=== PATIENT | female | born 1965 | race Caucasian/White ===

== ENCOUNTER 2016-10-03 15:20 | Emergency (ER) | payer BC, OTHER ==
[2016-10-03] MEDS ORDERED: SODIUM CHLORIDE 0.9% 1,000 ML IV ONE (15:50)
[2016-10-03] MEDS ORDERED: diphenhydrAMINE INJ 50 MG/ML VIAL IVP STA (15:50)
[2016-10-03] MEDS ORDERED: PROCHLORPERAZINE 10 MG/2 ML VIAL IVP STA (15:50)
[2016-10-03] MEDS ORDERED: DEXAMETHASONE 10 MG/ML VIAL IVP STA (15:51)
[2016-10-03] MEDS ORDERED: KETOROLAC 60 MG/2 ML VIAL IVP STA (15:51)
[2016-10-03] MEDS ORDERED: KETOROLAC 30 MG/ML VIAL ONE (16:03)
[2016-10-03] MEDS ORDERED: PROCHLORPERAZINE 10 MG/2 ML VIAL ONE (16:03)
[2016-10-03] MEDS ORDERED: DEXAMETHASONE 10 MG/ML VIAL ONE (16:03)
[2016-10-03] MEDS ORDERED: diphenhydrAMINE INJ 50 MG/ML VIAL ONE (16:04)
[2016-10-03] MEDS ORDERED: HYDROmorphone 1 MG/ML SYRINGE IVP STA (16:46)
[2016-10-03] MEDS ORDERED: HYDROmorphone 1 MG/ML SYRINGE ONE (16:50)
== END 2016-10-03 17:31 | disposition home or self-care (01) ==
DX: G43.901 Migraine, unspecified, not intractable, with status migrainosus (principal)
CPT/HCPCS: 96361; 96374; 96375; 99283; 99284; J1170

== ENCOUNTER 2016-10-16 16:54 | Outpatient (CLI) | payer OTHER | END 2016-10-16 16:55 | disposition home or self-care (01) | DX: G43.909 Migraine, unspecified, not intractable, without status migrainosus (principal); R93.8 Abnormal findings on diagnostic imaging of other specified body structures ==

== ENCOUNTER 2016-10-30 07:47 | Outpatient (CLI) | payer OTHER ==
[2016-10-30] MEDS ORDERED: GADOBUTROL 10 MMOL/10 ML VIAL IVP ONE (08:39)
== END 2016-10-30 07:48 | disposition home or self-care (01) ==
DX: G93.9 Disorder of brain, unspecified (principal)
CPT/HCPCS: 70553; A9585

== ENCOUNTER 2017-04-16 10:15 | Outpatient (CLI) | payer OTHER ==
--- NOTE | 2017-04-17 15:42 | Mammography Report ---
DIGITAL SCREENING MAMMOGRAM: 04/16/2017 CLINICAL INDICATION: A 51-year-old for screening. COMPARISON: 03/2016, 03/2015, 06/2013, 04/2012, 02/2011, 01/2010, 12/2008, 12/2007. TECHNIQUE: Routine CC and MLO projections were obtained of the breasts. FINDINGS: The breasts again demonstrate heterogeneously dense fibroglandular parenchyma bilaterally. Coarse and punctate, typically benign calcifications are present. In the left central posterior br east, only well seen on the CC projection, there is a possible developing density. Further evaluatio n with spot compression views and possible ultrasound is recommended. No mammographically suspicious findings are appreciated in the right breast. IMPRESSION: INCOMPLETE EXAMINATION. RECOMMENDATION: Additional evaluation of the left breast as above. BI-RADS category 0, incomplete. STANDARD QUALIFYING STATEMENTS 1. This examination was reviewed with the aid of Computer-Aided Detection (CAD). 2. A negative or benign imaging report should not delay biopsy if clinically suspicious findings are present. Consider surgical consultation if warranted. More than 5% of cancers are not identified by i maging. 3. Dense breasts may obscure an underlying neoplasm. JOB #: [id number] EXT JOB #:[id number]
== END 2017-04-16 10:16 | disposition home or self-care (01) ==
LOC: DI.N 10:15
PROVIDERS: ATTEND Family Medicine
DX: Z12.31 Encounter for screening mammogram for malignant neoplasm of breast (principal); R92.8 Other abnormal and inconclusive findings on diagnostic imaging of breast
CPT/HCPCS: 77067

== ENCOUNTER 2017-04-21 11:05 | Outpatient (CLI) | payer OTHER ==
--- NOTE | 2017-04-21 12:43 | Ultrasound Report ---
ULTRASOUND LEFT BREAST: 04/21/2017 CLINICAL INDICATION: Persistent nodule on mammogram. TECHNIQUE: Real-time scanning was performed with installation service representative static images obtained. FINDINGS: Ultrasound of the left breast was performed. In the retroareolar position, there is an em bedded 7 x 6 x 2 mm cyst. No sonographically suspicious findings are appreciated. IMPRESSION: SIMPLE CYST, ACCOUNTING FOR THE MAMMOGRAPHIC ABNORMALITY. RECOMMENDATION: Routine annual screening unless otherwise clinically indicated. BIRADS CATEGORY 2 - BENIGN FINDINGS. JOB #: [id number] EXT JOB #:[id number]
--- NOTE | 2017-04-21 17:21 | Mammography Report ---
DIGITAL DIAGNOSTIC LEFT MAMMOGRAM: 04/21/2017 CLINICAL INDICATION: Possible developing density left posterior breast. TECHNIQUE: Left true lateral and spot compression views. COMPARISON: 04/16/2017, 04/16/2016, 04/11/2015, 06/23/2013, 05/20/2012, 03/14/2011, 02/11/2010. The left breast again demonstrates heterogeneously dense fibroglandular parenchyma. The developing d ensity in the left posterior central breast dissipates partially on additional compression, measuring approximately 1 cm. No associated calcifications are seen. Please also refer to left breast ultras ound of the same day. IMPRESSION: BENIGN FINDINGS, WITH A DEEPLY EMBEDDED SIMPLE CYST ACCOUNTING FOR THE MAMMOGRAPHIC ABNO RMALITY. RECOMMENDATION: ROUTINE ANNUAL SCREENING UNLESS OTHERWISE CLINICALLY INDICATED. BIRADS CATEGORY: 2, BENIGN FINDINGS. STANDARD QUALIFYING STATEMENTS 1. This examination was reviewed with the aid of Computed-Aided Detection (CAD). 2. A negative or benign imaging report should not delay biopsy if clinically suspicious findings are present. Consider surgical consultation if warranted. More than 5% of cancers are not identified b y imaging. 3. Dense breasts may obscure an underlying neoplasm. JOB #: [id number] EXT JOB #:[id number]
== END 2017-04-21 11:06 | disposition home or self-care (01) ==
LOC: DI 11:05
PROVIDERS: ATTEND Family Medicine
DX: N60.02 Solitary cyst of left breast (principal)
CPT/HCPCS: 76642

== ENCOUNTER 2018-05-10 08:39 | Day surgery (SDC) | payer BC ==
[2018-05-10] MEDS ORDERED: LACTATED RINGERS 1,000 ML IV ONE ×4 (09:02→10:37)
[2018-05-10] MEDS ORDERED: fentaNYL 250 MCG/5 ML VIAL IVP ONE (09:57)
[2018-05-10] MEDS ORDERED: MIDAZOLAM 2 MG/2 ML VIAL IVP ONE (09:57)
[2018-05-10] MEDS ORDERED: fentaNYL 100 MCG/2 ML VIAL IVP ONE (09:57)
[2018-05-10 11:23] VITALS: BP 110/80
== END 2018-05-10 08:40 | disposition home or self-care (01) ==
LOC: SDS 08:39
PROVIDERS: ATTEND Surgery
PROC: 0DJD8ZZ Inspection of Lower Intestinal Tract, Via Natural or Artificial Opening Endoscopic (ICD-10-PCS; principal; 2018-05-10 09:45)
DX: Z12.11 Encounter for screening for malignant neoplasm of colon (principal); K64.8 Other hemorrhoids; F41.9 Anxiety disorder, unspecified; Z83.71 Family history of colonic polyps; Z85.828 Personal history of other malignant neoplasm of skin
CPT/HCPCS: 45378; J3010; J7120

== ENCOUNTER 2018-05-20 14:38 | Outpatient (CLI) | payer BC ==
--- NOTE | 2018-05-20 15:51 | XRAY Report ---
Reason: LATERAL EPICONDYLITIS OF THE RIGHT ELBOW Procedure Date: 05/20/2018 Accession Number: [id number] / [id number] Procedure: XR - Elbow 2 View RT CPT Code: FULL RESULT: EXAM: RIGHT ELBOW RADIOGRAPHY EXAM DATE: 05/20/2018 03:18 PM. CLINICAL HISTORY: Lateral epicondylitis of the right elbow. COMPARISON: None. TECHNIQUE: 2 views. FINDINGS: Bones: Normal. No fractures or bone lesions. Joints: Normal. No effusion. No subluxation. Soft Tissues: Normal. No soft tissue swelling. IMPRESSION: Normal elbow radiography. RADIA
== END 2018-05-20 14:39 | disposition home or self-care (01) ==
LOC: DI 14:38
PROVIDERS: ATTEND Family Medicine
DX: M77.11 Lateral epicondylitis, right elbow (principal)

== ENCOUNTER 2018-06-01 08:00 | Outpatient (CLI) | payer BC | END 2018-06-01 08:01 | disposition home or self-care (01) | LOC: LAB.R 08:00 | PROVIDERS: ATTEND Family Medicine | DX: R32 Unspecified urinary incontinence (principal); R30.0 Dysuria | CPT/HCPCS: 81001; 81003; 87086; 87181 ==

== ENCOUNTER 2018-06-15 14:54 | Outpatient (CLI) | payer BC ==
[2018-06-15 19:07] LABS: BILIRUBIN,URINE NEGATIVE (NEGATIVE); GLUCOSE, URINE (UA) NEGATIVE (NEGATIVE); KETONES,URINE (UA) NEGATIVE (NEGATIVE); LEUKOCYTE ESTERASE, URINE TRACE (NEGATIVE); NITRITE,URINE NEGATIVE (NEGATIVE); OCCULT BLOOD,URINE NEGATIVE (NEGATIVE); PH,URINE 6.5 PH (5.0-7.5); PROTEIN,URINE NEGATIVE (NEGATIVE); UROBILINOGEN,URINE 0.2 (NORMAL) E.U./dL (NORMAL)
[2018-06-15 19:12] LABS: CLARITY,URINE CLEAR (CLEAR)
[2018-06-15 19:16] LABS: AMORPHOUS SEDIMENT,UR Few /LPF; BACTERIA,URINE Rare /HPF (None Seen); RBC,URINE 0-5 /HPF (0-5); SQUAMOUS EPITHELIAL CELL,UR FEW Squamous (<= Few)
== END 2018-06-15 14:55 | disposition home or self-care (01) ==
LOC: LAB.WCP 14:54
PROVIDERS: ATTEND Family Medicine
DX: R30.0 Dysuria (principal)
CPT/HCPCS: 81001; 87086

== ENCOUNTER 2019-02-18 13:46 | Emergency (ER) | payer BC ==
--- NOTE | 2019-02-18 14:02 | ED Physician Documentation ---
History of Present Illness - Stated complaint Stated Complaint: IRREGULAR HR - History obtained from History obtained from: Patient - History of Present Illness Timing: How many weeks ago (4 weeks) Improved by: Nothing Worsened by: Nothing - Additonal information Additional information: Is a 53-year-old woman who for about the past month has been experiencing some pausing in her heartbeat that is very intermittent and lasts for just a couple minutes and then resolve. It started this afternoon and just seems to be lasting longer and more frequently than it has in the past. She is made an appointment to see her primary care provider on Thursday to discuss this with her and she became concerned when it continued today and left work to come in to be evaluated. She denies any associated chest pain, shortness of breath, dizziness or loss of consciousness, diaphoresis or nausea. No history of heart disease. She has not noted any alleviating or exacerbating factors. She does not take any decongestant medications and drinks 2 cups of coffee about daily.No recreational drug use. 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 She is never had any thyroid disease. She does have a family history of her mother passing at age 61 of a heart attack and her father has congestive heart failure and hypertension. Review of Systems Constitutional: denies: Fever, Chills, Fatigue Eyes: denies: Decreased vision Nose: denies: Rhinorrhea / runny nose Throat: denies: Sore throat Cardiac: reports: Palpitations. denies: Chest pain / pressure, Pedal edema Respiratory: denies: Dyspnea, Cough GI: denies: Abdominal Pain, Nausea, Vomiting, Diarrhea : reports: Vaginal bleeding (She has developed some vaginal spotting. Her last menstrual period was in September of this year and her computer network and systems engineer told her on the blood work it looks like she was in menopause.To get some mild suprapubic cramping from time to time. No history of fibroid. Her last female check with the PRESS OPERATOR [employer]Y was 1 year ago). denies: Dysuria, Frequency, Hematuria Skin: denies: Rash Neurologic: denies: Generalized weakness, Focal weakness, Numbness, Syncope, Altered mental status, LOC PD PAST MEDICAL HISTORY - Past Medical History Cardiovascular: None Respiratory: None Neuro: Other (Meningiomas) Endocrine/Autoimmune: Other (Pituitary cysts) GI: None : None HEENT: Chronic vision loss Psych: None Musculoskeletal: None Derm: None - Past Surgical History Past Surgical History: Yes /[employer] OPERATOR [employer]: Endometrial ablation - Present Medications Home Medications: Ambulatory Orders Medication Instructions Recorded Confirmed Citalopram [CeleXA] 2 tab PO DAILY 04/12/14 05/07/18 - Allergies Allergies/Adverse Reactions: Allergies Allergy/AdvReac Type Severity Reaction Status Date / Time erythromycin base Allergy Hives Verified 02/18/19 14:02 [Erythromycin Base] - Living Situation Living Situation: reports: With spouse/s.o. Living Arrangement: reports: At home - Social History Does the pt smoke?: No Smoking Status: Never smoker Does the pt drink ETOH?: No Does the pt have substance abuse?: No Substance Use and Type: Other (Denies use of recreational drugs) Additional Social History: Works as a teacher - Family History Family history: reports: Other (Mother passed at age 61 of an NC. Father has hypertension and CHF) - Immunizations Immunizations are current?: Yes - POLST Patient has POLST: Yes PD ED PE NORMAL - Vitals Vital signs reviewed: Yes - General General: Alert and oriented X 3, No acute distress, Well developed/nourished - HEENT HEENT: Atraumatic, PERRL, EOMI, Moist mucous membranes, Pharynx benign - Neck Neck: Supple, no meningeal sign, No adenopathy, No JVD - Cardiac Cardiac: RRR, No murmur - Respiratory Respiratory: No respiratory distress, Clear bilaterally - Abdomen Abdomen: Normal bowel sounds - Derm Derm: Normal color, Warm and dry, No rash - Extremities Extremities: No edema - Neuro Neuro: Alert and oriented X 3, pl sql programmer 2-12 intact, No motor deficit, No sensory deficit, Normal speech - Psych Psych: Normal mood, Normal affect Results - Vitals Vitals: Vital Signs - 24 hr 02/18/19 02/18/19 02/18/19 13:57 14:53 15:35 Temperature 36.1 C L Heart Rate 64 63 Respiratory 18 15 Rate Blood Pressure 150/85 H 122/86 H O2 Saturation 99 100 Oxygen O2 Source Room air - EKG (time done) 1353 Rate: Rate (enter#) Rhythm: NSR Intervals: Normal DE Ischemia: Normal ST segments Compare to prior EKG: Old EKG unavailable - Labs Labs: Laboratory Tests 02/18/19 02/18/19 02/18/19 14:20 14:20 14:20 WBC 8.3 RBC 3.92 L Hgb 11.9 L Hct 35.2 L MCV 90.0 MCH 30.5 MCHC 33.9 RDW 12.8 Plt Count 240 MPV 6.5 L Neut # (Auto) 5.7 Lymph # (Auto) 2.0 [place] # (Auto) 0.4 Eos # (Auto) 0.1 Baso # (Auto) 0.1 Absolute Nucleated RBC 0.00 Nucleated RBC % 0.0 Sodium 134 L Potassium 3.6 Chloride 101 Carbon Dioxide 23 Anion Gap 10.0 BUN 13 Creatinine 0.6 Estimated GFR (MDRD) 105 Glucose 124 H Calcium 9.3 Magnesium 2.3 Total Bilirubin 0.5 AST 16 ALT 12 Alkaline Phosphatase 48 Troponin I < 0.04 Total Protein 7.1 Albumin 4.0 Globulin 3.1 Albumin/Globulin Ratio 1.3 Lipase 33 TSH Urine Color Urine Clarity Urine pH Ur Specific Mitchell Urine Protein Urine Glucose (UA) Urine Ketones Urine Occult Blood Urine Nitrite Urine Bilirubin Urine Urobilinogen Ur Leukocyte Esterase Ur Microscopic Review Urine Culture Comments Urine HCG, Qual 02/18/19 02/18/19 14:20 14:43 WBC RBC Hgb Hct MCV MCH MCHC RDW Plt Count MPV Neut # (Auto) Lymph # (Auto) [place] # (Auto) Eos # (Auto) Baso # (Auto) Absolute Nucleated RBC Nucleated RBC % Sodium Potassium Chloride Carbon Dioxide Anion Gap BUN Creatinine Estimated GFR (MDRD) Glucose Calcium Magnesium Total Bilirubin AST ALT Alkaline Phosphatase Troponin I Total Protein Albumin Globulin Albumin/Globulin Ratio Lipase TSH 1.58 Urine Color YELLOW Urine Clarity CLEAR Urine pH 6.5 Ur Specific Mitchell <=1.005 Urine Protein NEGATIVE Urine Glucose (UA) NEGATIVE Urine Ketones NEGATIVE Urine Occult Blood NEGATIVE Urine Nitrite NEGATIVE Urine Bilirubin NEGATIVE Urine Urobilinogen 0.2 (NORMAL) Ur Leukocyte Esterase NEGATIVE Ur Microscopic Review NOT INDICATED Urine Culture Comments NOT INDICATED Urine HCG, Qual NEGATIVE PD MEDICAL DECISION MAKING - ED course Complexity details: d/w patient ED course: The patient Was monitored here in the emergency department without any dysrhythmia as noted. We did not see any PACs or PVCs. Her labs are normal including a normal troponin and TSH. Chest x-ray is clear. Patient will be discharged with outpatient follow-up with her primary care provider on Thursday as scheduled. Departure - Departure Disposition: Home, Self Care Clinical Impression: Intermittent palpitations Condition: Good Instructions: ED Palpitations Follow-Up: Tiera Garces MD [Primary Care Provider] - Comments: Follow-up with your primary care provider as scheduled on Thursday of next week. No restrictions at this time although if your heart begins racing and you are feeling short of breath, dizzy or develop chest pain you should be reevaluated.
[2019-02-18 14:37] LABS: BASOPHILS # (AUTO) 0.1 10^3/uL (0.0-0.1); BASOPHILS % (AUTO) 0.9 %; EOSINOPHILS # (AUTO) 0.1 10^3/uL (0.0-0.7); EOSINOPHILS % (AUTO) 1.6 %; HGB - HEMOGLOBIN 11.9 g/dL (12.0-16.0); LYMPHOCYTES % (AUTO) 23.9 %; MEAN CORPUSCULAR HEMOGLOBIN 30.5 pg (27.0-31.0); MEAN CORPUSCULAR HGB CONC 33.9 g/dL (32.0-36.0); MEAN PLATELET VOLUME 6.5 fL (7.9-10.8); MONOCYTES # (AUTO) 0.4 10^3/uL (0.0-1.0); MONOCYTES % (AUTO) 5.2 %; NEUTROPHILS # (AUTO) 5.7 10^3/uL (1.5-6.6); NEUTROPHILS % (AUTO) 68.4 %; PLT - PLATELET COUNT 240 10^3/uL (130-450); RED BLOOD COUNT 3.92 10^6/uL (4.20-5.40); RED CELL DISTRIBUTION WIDTH 12.8 % (12.0-15.0); WHITE BLOOD COUNT 8.3 x10^3/uL (4.8-10.8)
[2019-02-18 14:51] LABS: ALBUMIN/GLOBULIN RATIO 1.3 (1.0-2.2); BILIRUBIN,TOTAL 0.5 mg/dL (0.2-1.0); CALCIUM 9.3 mg/dL (8.5-10.3); CREATININE 0.6 mg/dL (0.4-1.0); MAGNESIUM 2.3 mg/dL (1.7-2.8); TOTAL PROTEIN 7.1 g/dL (6.7-8.2)
[2019-02-18 14:53] LABS: BILIRUBIN,URINE NEGATIVE (NEGATIVE); GLUCOSE, URINE (UA) NEGATIVE (NEGATIVE); KETONES,URINE (UA) NEGATIVE (NEGATIVE); LEUKOCYTE ESTERASE, URINE NEGATIVE (NEGATIVE); NITRITE,URINE NEGATIVE (NEGATIVE); OCCULT BLOOD,URINE NEGATIVE (NEGATIVE); PH,URINE 6.5 PH (5.0-7.5); PROTEIN,URINE NEGATIVE (NEGATIVE); UROBILINOGEN,URINE 0.2 (NORMAL) E.U./dL (NORMAL)
[2019-02-18 14:56] LABS: CLARITY,URINE CLEAR (CLEAR); HCG UR QUAL NEGATIVE
--- NOTE | 2019-02-18 15:49 | XRAY Report ---
Reason: cough Procedure Date: 02/18/2019 Accession Number: [id number] / [id number] Procedure: XR - Chest 2 View X-Ray CPT Code: 29084 FULL RESULT: EXAM: CHEST RADIOGRAPHY EXAM DATE: 02/18/2019 03:23 PM. CLINICAL HISTORY: Cough. Irregular heartbeat. COMPARISON: None. TECHNIQUE: 2 views. FINDINGS: Lungs/Pleura: No focal opacities evident. No pleural effusion. No pneumothorax. Normal volumes. Mediastinum: Heart and mediastinal contours are unremarkable. Other: No bony abnormality identified. IMPRESSION: Normal 2-view chest radiography. RADIA
[2019-02-18 16:37] VITALS: BP 126/70
== END 2019-02-18 16:37 | disposition home or self-care (01) ==
LOC: ED 13:46
DX: R00.2 Palpitations (principal); Z82.49 Family history of ischemic heart disease and other diseases of the circulatory system
CPT/HCPCS: 36415; 71046; 80053; 81001; 81003; 81025; 83690; 83735; 84443; 84484; 85025; 87086; 93005; 99283; 99284

== ENCOUNTER 2019-03-01 15:16 | Outpatient (CLI) | payer BC ==
--- NOTE | 2019-03-01 17:43 | Ultrasound Report ---
Reason: ABNORMAL VAGINAL BLEEDING Procedure Date: 03/01/2019 Accession Number: [id number] / [id number] Procedure: US - Pelvic w/Transvaginal CPT Code: FULL RESULT: EXAM: PELVIC ULTRASOUND EXAM DATE: 03/01/2019 04:43 PM. CLINICAL HISTORY: ABNORMAL VAGINAL BLEEDING. COMPARISON: None. TECHNIQUE: Realtime transabdominal pelvic scan performed to identify the uterus and adnexa and as an overview of other pelvic structures, followed by transvaginal scan to provide greater detail of the uterus and adnexa, with static image documentation. FINDINGS: Uterus: 8.7 x 4.7 x 6.5 cm, volume 139 cc. Anteverted position. Normal overall size. Mild heterogeneous echotexture of the uterus, this finding can be seen associated with adenomyosis. Masses: There are 2 intramural fibroids, an anterior fibroid measuring 1.7 x 1.7 x 1.3 cm and a posterior fibroid measuring 2.9 x 2.6 x 3 cm. Fibroids are in close approximation to the endometrial canal, a small submucosal component of the fibroids cannot be excluded. Endometrium: 5.1 mm. No focal endometrial polyp or mass. Cervix: Unremarkable. Right Ovary: 3.8 x 2.2 x 4.1 cm, volume 17.9 cc. Normal echotexture and blood flow. There is a right ovarian cyst measuring 2.9 x 2.6 x 2.1 cm. Left Ovary: 3.6 x 2.2 x 3.5 cm, volume 14.5 cc. Normal echotexture and blood flow. There is a left ovarian cyst measuring 2.2 x 2 x 2 cm. Free Fluid: None. Other: None. IMPRESSION: Two intramural fibroids, anterior and posterior location but fibroids are in close approximation to the endometrial canal, a small submucosal component cannot be excluded. No focal endometrial polyp or mass. Endometrial thickness is 5 mm. RADIA
== END 2019-03-01 15:17 | disposition home or self-care (01) ==
LOC: DI 15:16
PROVIDERS: ATTEND Family Medicine
DX: D25.1 Intramural leiomyoma of uterus (principal)
CPT/HCPCS: 76830; 76856

== ENCOUNTER 2019-07-14 08:00 | Outpatient (CLI) | payer BC | END 2019-07-14 23:59 | disposition home or self-care (01) | LOC: LAB.WCP 08:00 | PROVIDERS: ATTEND Physician Assistant Medical | DX: R30.0 Dysuria (principal) | CPT/HCPCS: 87086; 87181 ==

== ENCOUNTER 2019-07-27 08:50 | Outpatient (CLI) | payer BC | END 2019-07-27 08:51 | disposition home or self-care (01) | LOC: DI 08:50 | PROVIDERS: ATTEND Internal Medicine Cardiovascular Disease | DX: R00.2 Palpitations (principal); I34.0 Nonrheumatic mitral (valve) insufficiency | CPT/HCPCS: 93306 ==

== ENCOUNTER 2019-08-05 14:25 | Outpatient (CLI) | payer BC ==
--- NOTE | 2019-08-05 17:55 | CARDIAC PROCEDURE NOTE ---
DATE OF SERVICE: 08/05/2019 Physician: Merced Mix MD INDICATION: Palpitations. CARDIAC RISK FACTORS 1. Postmenopausal status. 2. Family history of heart disease. DESCRIPTION OF PROCEDURE: After signing informed consent, patient underwent a Delfino-protocol treadmill stress test. No imaging was ordered with this test. RESTING HEART RATE: 60. PEAK HEART RATE 154 (91% predicted maximum heart rate for age). RESTING BLOOD PRESSURE: 129/78. PEAK BLOOD PRESSURE: 180/82. She exercised for 8 minutes and achieved a peak heart rate of 154 (91% PMHR) and 10.1 METS. Patient had mild-moderate shortness of breath at peak, and described several twinges of pleuritic chest pain in the left upper chest at peak, these resolved immediately in recovery. Patient had 1 PVC during the entire test, in recovery, she did feel this. RESTING EKG: Normal sinus rhythm, early repolarization. EKG AT PEAK: No ischemic ST segment or T-wave changes developed. SUMMARY 1. Normal resting EKG. 2. No ischemic changes developed with treadmill stress at a good level of achieved exertion. 3. One single PVC noted in recovery, no other dysrhythmias and there were no complaints of palpitations. 4. Pleuritic chest pain developed briefly at peak. 5. No imaging was ordered with this test. 6. This patient's cardiac risk, based on this stress test: Low. cc: Alton Cordero MD TD: 08/05/2019 16:23 MTDD
== END 2019-08-05 14:26 | disposition home or self-care (01) ==
LOC: DI 14:25
PROVIDERS: ATTEND Internal Medicine Cardiovascular Disease
DX: R00.2 Palpitations (principal); Z82.49 Family history of ischemic heart disease and other diseases of the circulatory system; Z78.0 Asymptomatic menopausal state
CPT/HCPCS: 93017

== ENCOUNTER 2020-07-11 08:45 | Outpatient (CLI) | payer BC, OTHER ==
[2020-07-11 11:40] LABS: BASOPHILS # (AUTO) 0.1 10^3/uL (0.0-0.1); BASOPHILS % (AUTO) 1.1 %; EOSINOPHILS # (AUTO) 0.1 10^3/uL (0.0-0.7); EOSINOPHILS % (AUTO) 2.9 %; HGB - HEMOGLOBIN 12.1 g/dL (12.0-16.0); LYMPHOCYTES # (AUTO) 1.7 10^3/uL (1.5-3.5); LYMPHOCYTES % (AUTO) 37.2 %; MEAN CORPUSCULAR HEMOGLOBIN 29.7 pg (27.0-31.0); MEAN CORPUSCULAR VOLUME 92.6 fL (81.0-99.0); MONOCYTES # (AUTO) 0.4 10^3/uL (0.0-1.0); MONOCYTES % (AUTO) 7.8 %; NEUTROPHILS # (AUTO) 2.3 10^3/uL (1.5-6.6); NEUTROPHILS % (AUTO) 50.6 %; PLT - PLATELET COUNT 283 10^3/uL (130-450); RED BLOOD COUNT 4.08 10^6/uL (4.20-5.40); RED CELL DISTRIBUTION WIDTH 13.3 % (12.0-15.0); WHITE BLOOD COUNT 4.5 x10^3/uL (4.8-10.8)
[2020-07-11 12:29] LABS: FERRITIN 51.4 ng/mL (11.0-306.8)
[2020-07-11 12:41] LABS: % IRON SATURATION 19 % (20-50); ALBUMIN 4.5 g/dL (3.2-5.5); ALBUMIN/GLOBULIN RATIO 1.6 (1.0-2.2); ALKALINE PHOSPHATASE 63 IU/L (42-121); ALT ALANINE AMINOTRANSFERASE 13 IU/L (10-60); AST ASPARTATE AMINOTRANSFERASE 15 IU/L (10-42); BILIRUBIN,TOTAL 0.5 mg/dL (0.2-1.0); BUN - BLOOD UREA NITROGEN 12 mg/dL (6-20); CALCIUM 9.7 mg/dL (8.5-10.3); CARBON DIOXIDE - CO2 26 mmol/L (21-32); CHLORIDE 101 mmol/L (101-111); CHOL/HDL RATIO 3.5 (<4.4); CHOLESTEROL 232 mg/dL; CREATININE 0.7 mg/dL (0.4-1.0); GLUCOSE 99 mg/dL (70-100); HDL CHOLESTEROL 67 mg/dL; IRON 82 ug/dL (28-170); LDL CHOLESTEROL,CALCULATED 150 mg/dL; LDL/HDL RATIO 2.2 (<4.4); MAGNESIUM 2.6 mg/dL (1.7-2.8); SODIUM 139 mmol/L (135-145); TOTAL IRON BINDING CAPACITY 424 ug/dL (250-450); TOTAL PROTEIN 7.4 g/dL (6.7-8.2); TRANSFERRIN 303 mg/dL (192-382); VLDL CHOLESTEROL 15 mg/dL
== END 2020-07-11 23:59 | disposition home or self-care (01) ==
LOC: LAB.WCP 08:45
PROVIDERS: ATTEND Family Medicine
DX: R07.89 Other chest pain (principal); D64.9 Anemia, unspecified
CPT/HCPCS: 36415; 80053; 80061; 82607; 82728; 83540; 83721; 83735; 84443; 84466; 85025

== ENCOUNTER 2020-08-15 08:00 | Outpatient (CLI) | payer OTHER | END 2020-08-15 23:59 | disposition home or self-care (01) | LOC: LAB.WCP 08:00 | PROVIDERS: ATTEND Family Medicine | DX: E53.8 Deficiency of other specified B group vitamins (principal) | CPT/HCPCS: 36415; 82607; 83921 ==

== ENCOUNTER 2020-09-03 15:17 | Emergency (ER) | payer OTHER ==
--- NOTE | 2020-09-03 15:48 | ED Physician Documentation ---
History of Present Illness - Stated complaint Stated Complaint: DIZZI, BLURRED VISION - Chief complaint Chief Complaint: Neuro - History obtained from History obtained from: Patient - History of Present Illness Timing: Yesterday Pain level max: 0 Pain level now: 0 - Additonal information Additional information: 55-year-old female presents to the emergency department stating that she has 2 meningiomas the are encroaching on her optic nerves. She states that yesterday she had spots in her vision for about 30 minutes. This has since resolved. Nothing makes it better or worse. No other neurological symptoms. She contacted her gray tender, Dr. Lashon Guzmán, at the [facility] ophthalmology who recommended she come to the emergency department for evaluation. Patient is currently fully asymptomatic. 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 - Present Medications Home Medications: Ambulatory Orders Medication Instructions Recorded Confirmed Citalopram [CeleXA] 2 tab PO DAILY 04/12/14 09/03/20 Progesterone,Micronized 100 mg PO DAILY 09/03/20 09/03/20 [Prometrium] estradioL [Estrace] 1 mg PO DAILY 09/03/20 09/03/20 - Allergies Allergies/Adverse Reactions: Allergies Allergy/AdvReac Type Severity Reaction Status Date / Time erythromycin base Allergy Hives Verified 09/03/20 15:27 [Erythromycin Base] - Social History Does the pt smoke?: No Smoking Status: Never smoker Does the pt drink ETOH?: No Does the pt have substance abuse?: No - Immunizations Immunizations are current?: Yes - POLST Patient has POLST: Yes PD ED PE NORMAL - Vitals Vital signs reviewed: Yes - General General: Alert and oriented X 3, No acute distress - HEENT HEENT: PERRL, EOMI, Pharynx benign - Neck Neck: Supple, no meningeal sign - Cardiac Cardiac: RRR - Respiratory Respiratory: No respiratory distress, Clear bilaterally - Derm Derm: Warm and dry - Extremities Extremities: No edema, No calf tenderness / cord - Neuro Neuro: Alert and oriented X 3, general matcher 2-12 intact, No motor deficit, No sensory deficit, Normal speech Eye Opening: Spontaneous Motor: Obeys Commands Verbal: Oriented GCS Score: 15 - Psych Psych: Normal mood, Normal affect Results - Vitals Vitals: Vital Signs - 24 hr 09/03/20 09/03/20 09/03/20 15:22 16:08 17:40 Temperature 36.5 C 36.6 C 36.9 C Heart Rate 66 63 61 Respiratory 16 14 14 Rate Blood Pressure 148/79 H 142/93 H 140/99 H O2 Saturation 100 100 100 Oxygen O2 Source Room air - EKG (time done) 1605 Rate: Rate (enter#) (60) Rhythm: NSR [place]: Normal Intervals: Normal NV QRS: Normal Ischemia: Normal ST segments - Labs Labs: Laboratory Tests 09/03/20 09/03/20 16:05 16:05 WBC 6.9 RBC 3.94 L Hgb 11.9 L Hct 36.0 L MCV 91.4 MCH 30.2 MCHC 33.1 RDW 12.5 Plt Count 237 MPV 8.5 Neut # (Auto) 3.8 Lymph # (Auto) 2.5 [place] # (Auto) 0.3 Eos # (Auto) 0.1 Baso # (Auto) 0.1 Absolute Nucleated RBC 0.00 Nucleated RBC % 0.0 Sodium 137 Potassium 3.6 Chloride 97 L Carbon Dioxide 25 Anion Gap 15.0 H BUN 12 Creatinine 0.6 Estimated GFR (MDRD) 105 Glucose 109 H Calcium 9.4 - Rads (name of study) CTA head Radiology: Prelim report reviewed, EMP read contemporaneously, See rad report CTA neck Radiology: Prelim report reviewed, EMP read contemporaneously, See rad report PD MEDICAL DECISION MAKING - ED course Complexity details: reviewed results, re-evaluated patient, considered differential, d/w patient ED course: 55-year-old female with a visual disturbance yesterday. Asymptomatic today. No acute findings on angiogram of the head and neck. No significant lab abnormalities. No significant changes on EKG. She has 2 known meningiomas that are compressing the optic nerves apparently and is being followed at the [facility] for this. Likely that that was the cause of her symptoms. We will have her follow-up with her gray tender for further care. Attempted to contact her gray tender x2 today, finally call returned after 5pm. D/w Dr. Giles, ophthalmology, and Reviewed results as well as her normal exam. They will have the clinic contact her for follow-up appointment. No acute findings on angiogram of the head and neck. No acute findings on laboratory testing, EKG. No evidence of stroke or TIA.d. Patient counseled regarding signs and symptoms for which I believe and urgent re-evaluation would be necessary. Patient with good understanding of and agreement to plan and is co mfortable going home at this time This document was made in part using voice recognition software. While efforts are made to proofread this document, sound alike and grammatical errors may occur.N Departure - Departure Disposition: 01 Home, Self Care Clinical Impression: Visual distortions Condition: Good Instructions: ED Blurred Vision Follow-Up: Mahendra Tavera DO [Primary Care Provider] - Comments: Your testing does not show any acute abnormalities today. Please follow-up with your doctor for further care. They may want to perform an MRI on an outpatient basis. I spoke with Dr. Piper today from ophthalmology, the clinic will contact you for follow-up appointment. NIHSS - Time Time: 15:30 - Level of Consciousness Level of consciousness: (0) Alert, Keenly responsive LOC Questions: (0) Answers both Q's correct LOC Commands: (0) Performs both correctly - Gaze Best Gaze: (0) Normal - Visual Visual: (0) No loss - Facial Palsy Facial Palsy: (0) Normal, symmetrical movement - Motor Arms (both separate) Motor Arm (right): (0) No drift Motor Arm (left): (0) No drift - Motor Legs (both separate) Motor Leg (right): (0) No drift Motor Leg (left): (0) No drift - Limb Ataxia Limb Ataxia: (0) Absent - Sensory Sensory: (0) Normal - Best Language Best Language: (0) No aphasia - Dysarthria Dysarthria: (0) Normal - Extinction and Inattention (formally neg Extinction and inattention: (0) No abnormality - Total Score/Results Total Score/Result: 0
[2020-09-03] MEDS ORDERED: IOVERSOL 320 100 ML VIAL IVP ONE ×2 (16:04→17:14)
[2020-09-03 16:27] LABS: BASOPHILS # (AUTO) 0.1 10^3/uL (0.0-0.1); BASOPHILS % (AUTO) 0.9 %; EOSINOPHILS # (AUTO) 0.1 10^3/uL (0.0-0.7); EOSINOPHILS % (AUTO) 1.6 %; HGB - HEMOGLOBIN 11.9 g/dL (12.0-16.0); LYMPHOCYTES # (AUTO) 2.5 10^3/uL (1.5-3.5); LYMPHOCYTES % (AUTO) 36.5 %; MEAN CORPUSCULAR HEMOGLOBIN 30.2 pg (27.0-31.0); MEAN CORPUSCULAR HGB CONC 33.1 g/dL (32.0-36.0); MEAN CORPUSCULAR VOLUME 91.4 fL (81.0-99.0); MEAN PLATELET VOLUME 8.5 fL (7.9-10.8); MONOCYTES # (AUTO) 0.3 10^3/uL (0.0-1.0); MONOCYTES % (AUTO) 4.9 %; NEUTROPHILS # (AUTO) 3.8 10^3/uL (1.5-6.6); NEUTROPHILS % (AUTO) 55.8 %; PLT - PLATELET COUNT 237 10^3/uL (130-450); RED BLOOD COUNT 3.94 10^6/uL (4.20-5.40); RED CELL DISTRIBUTION WIDTH 12.5 % (12.0-15.0); WHITE BLOOD COUNT 6.9 x10^3/uL (4.8-10.8)
[2020-09-03 16:36] LABS: CALCIUM 9.4 mg/dL (8.5-10.3); CREATININE 0.6 mg/dL (0.4-1.0)
--- NOTE | 2020-09-03 17:28 | CT Report ---
PROCEDURE: ANGIO HEAD W/WO INDICATIONS: Blurry vision; history of meningioma CONTRAST: IV CONTRAST: Optiray 320 ml: 80 PO CONTRAST: *NO PO CONTRAST TECHNIQUE: Precontrast 4.5 mm thick angled axial sections acquired from the foramen magnum to the vertex. Afte r the administration of intravenous contrast, 1 mm thick sections acquired through the [place] of [place] is. Postcontrast 4.5 mm thick sections then re-acquired from the foramen magnum to the vertex. 3-di mensional hnzfpbh-ajvurwukt-cminbfijkb (MIP) and/or volume rendering reformats were acquired of the c entral intracranial vasculature. For radiation dose reduction, the following was used: automated ex posure control, adjustment of mA and/or kV according to patient size. COMPARISON: Pituitary MRI 10/31/2016 FINDINGS: Image quality: Excellent. Anterior circulation: Intracranial internal carotid arteries are normal in size and flow. The flow within the paired anterior cerebral arteries is normal and symmetric. The flow within the middle cer ebral arteries is normal and symmetric. The anterior communicating artery is seen. No aneurysms are seen. Posterior circulation: Visualized portions of the vertebral arteries demonstrate normal caliber, and join to form a normal appearing basilar artery. Flow within the posterior cerebral arteries is norm al and symmetric. No aneurysms are seen. CSF spaces: Ventricles are normal in size and shape. Basal cisterns are patent. No extra-axial flu id collections. Brain: Enhancing dural based extra-axial masses along the posterior margin of the floor of the anter ior cranial fossa have slightly increased in size when compared with 2017 exam. These remain consiste nt with meningiomas. These are notably near the orbital apices although there is no gross evidence of impingement upon the adjacent neural vasculature. No midline shift. No intracranial bleeds or juan s. Duffy-white matter interface appears intact. Skull and face: Calvarium and facial bones appear intact, without suspicious lesions. Sinuses: Visualized sinuses and mastoids are clear. IMPRESSION: No hemodynamic significant stenosis or occlusion of the major intracranial arterial vascular culture. Meningiomas based along the posterior floor of the anterior cranial fossa which closely approximate t he orbital apices and could contribute towards visual symptoms potentially. MRI could be considered f or further evaluation. Reviewed by: Adi Sher MD on 09/03/2020 4:27 PM [place] Approved by: Adi Sher MD on 09/03/2020 4:27 PM [place] Station ID: [id number]
--- NOTE | 2020-09-03 17:30 | CT Report ---
PROCEDURE: ANGIO NECK W INDICATIONS: blurred vision yesterday, h/o meningioma CONTRAST: IV CONTRAST: Optiray 320 ml: 80 PO CONTRAST: *NO PO CONTRAST TECHNIQUE: After the administration of intravenous contrast, 1.5 mm axial sections acquired from the aortic arch to the [place] of [place]. Coronal 3-D maximum intensity projection (MIP) and/or volume rendering ref ormats were then performed. For radiation dose reduction, the following was used: automated exposur e control, adjustment of mA and/or kV according to patient size. COMPARISON: None. FINDINGS: Image quality: Excellent. Carotid system: The great vessels demonstrate a conventional anatomy as they arise from the aortic a rch. The origins of the common carotid arteries appear patent. The common carotid arteries demonstr ate normal calibers and courses. The bifurcation regions appear normal bilaterally. The internal ca rotid arteries demonstrate normal caliber and course. Posterior circulation: The origins of the vertebral arteries appear patent. The more superior porti ons of the vertebral arteries demonstrate normal course and caliber. They join to form a normal appe aring basilar artery. Soft tissues: Visualized neck soft tissues demonstrate no suspicious abnormalities. The thyroid gla nd is normal in size. Bones: No suspicious bony lesions. Visualized cervical spine appears normally aligned. IMPRESSION: No hemodynamically significant stenosis or occlusion of the extracranial arterial circulation. The estimate of stenosis included in the report of the imaging study was calculated using the NASCET method Reviewed by: Adi Sher MD on 09/03/2020 4:28 PM [facility] Approved by: Adi Sher MD on 09/03/2020 4:28 PM [place] Station ID: [id number]
[2020-09-03 17:41] VITALS: BP 140/99
== END 2020-09-03 17:50 | disposition home or self-care (01) ==
LOC: ED 15:17
DX: H53.15 Visual distortions of shape and size (principal); R42 Dizziness and giddiness; D32.0 Benign neoplasm of cerebral meninges
CPT/HCPCS: 70496; 70498; 80048; 85025; 93005; 99284; 99285; Q9967; 36415

== ENCOUNTER 2021-09-09 10:28 | Outpatient (CLI) | payer OTHER ==
--- NOTE | 2021-09-10 11:47 | Mammography Report ---
BILATERAL DIGITAL SCREENING MAMMOGRAM 3D/2D: 09/09/2021 CLINICAL: Routine screening. Comparison is made to exams dated: 04/16/2017 mammogram, 04/16/2016 mammogram, 04/11/2015 ultrasound, mammogram, 06/23/2013 mammogram, and 05/20/2012 mammogram - [facility]. The re are scattered fibroglandular elements in both breasts. No significant masses, calcifications, or other findings are seen in either breast. There has been no significant interval change. IMPRESSION: NEGATIVE There is no mammographic evidence of malignancy. A 1 year screening mammogram is recommended. This exam was interpreted at Station ID: [id number]. NOTE: For mammograms, a report in lay terms will be sent to the patient. Approximately 15% of breast malignancies will not be visualized mammographically. In the management of a palpable breast mass, a negative mammogram must not discourage biopsy of a clinically suspicious lesion. Electronically Signed By: Adi Sher M.D., jr/dominique:09/09/2021 11:05:30 ACR BI-RADS Category 1: Negative 3341F PARENCHYMAL PATTERN: (A) - The breast(s) demonstrate(s) scattered fibroglandular densities. BI-RADS CATEGORY: (1) - 1 RECOMMENDATION: (ANNUAL) - Recommend routine annual screening mammography. [id number] 1 year screening LATERALITY: (B)
== END 2021-09-09 10:29 | disposition home or self-care (01) ==
LOC: DI.N 10:28
DX: Z12.31 Encounter for screening mammogram for malignant neoplasm of breast (principal)

== ENCOUNTER 2021-12-03 08:00 | Outpatient (CLI) | payer OTHER | END 2021-12-03 23:59 | LOC: LAB.R 08:00 | PROVIDERS: ATTEND Physician Assistant Medical | DX: R10.9 Unspecified abdominal pain (principal) | CPT/HCPCS: 87086 ==

== ENCOUNTER 2022-02-06 15:28 | Outpatient (CLI) | payer OTHER ==
--- NOTE | 2022-02-06 19:18 | XRAY Report ---
PROCEDURE: Cervical Spine w/Flex/Ext INDICATIONS: NUMBNESS, TINGLING IN RIGHT ARM TECHNIQUE: 7 views of the cervical spine were acquired. COMPARISON: None. FINDINGS: Bones: No fractures or dislocations to the superior endplate of T1 level. No suspicious bony lesion s. There is normal range of motion between flexion and extension, with preserved normal bony alignme nt. Small vertebral body osteophytes. Soft tissues: Prevertebral soft tissues are normal in thickness. IMPRESSION: Mild degenerative change in the cervical spine. If clinically indicated consider further evaluation with MRI of the cervical spine. Reviewed by: Artem Dunham MD on 02/06/2022 7:17 PM PDT Approved by: Artem Dunham MD on 02/06/2022 7:17 PM PDT Station ID: [id number]
--- NOTE | 2022-02-06 19:21 | XRAY Report ---
PROCEDURE: Lumbar Spine Complete INDICATIONS: LEG NUMBNESS, RIGHT TECHNIQUE: 5 views of the lumbar spine were acquired. COMPARISON: None. FINDINGS: Bones: 5 [id number] vertebrae are present. There is normal bony alignment. Small vertebral bod y osteophytes. No vertebral body compression fractures. No suspicious bony lesions. Soft tissues: Overlying bowel gas pattern is normal. No suspicious soft tissue calcifications. IMPRESSION: Mild degenerative change in the lumbar spine. Reviewed by: Artem Dunham MD on 02/06/2022 7:19 PM PDT Approved by: Artem Dunham MD on 02/06/2022 7:19 PM PDT Station ID: [id number]
== END 2022-02-06 15:29 | disposition home or self-care (01) ==
LOC: DI.N 15:28
PROVIDERS: ATTEND Physician Assistant
DX: M47.812 Spondylosis without myelopathy or radiculopathy, cervical region (principal); M47.816 Spondylosis without myelopathy or radiculopathy, lumbar region

== ENCOUNTER 2022-02-07 07:05 | Outpatient (CLI) | payer OTHER ==
[2022-02-07 12:23] LABS: BASOPHILS # (AUTO) 0.1 10^3/uL (0.0-0.1); BASOPHILS % (AUTO) 1.3 %; EOSINOPHILS # (AUTO) 0.2 10^3/uL (0.0-0.7); EOSINOPHILS % (AUTO) 3.3 %; HGB - HEMOGLOBIN 12.9 g/dL (12.0-16.0); LYMPHOCYTES # (AUTO) 2.4 10^3/uL (1.5-3.5); LYMPHOCYTES % (AUTO) 49.3 %; MEAN CORPUSCULAR HEMOGLOBIN 30.8 pg (27.0-31.0); MEAN CORPUSCULAR HGB CONC 33.9 g/dL (32.0-36.0); MEAN CORPUSCULAR VOLUME 90.7 fL (81.0-99.0); MEAN PLATELET VOLUME 9.1 fL (7.9-10.8); MONOCYTES # (AUTO) 0.4 10^3/uL (0.0-1.0); MONOCYTES % (AUTO) 7.3 %; NEUTROPHILS # (AUTO) 1.9 10^3/uL (1.5-6.6); NEUTROPHILS % (AUTO) 38.8 %; PLT - PLATELET COUNT 272 10^3/uL (130-450); RED BLOOD COUNT 4.19 10^6/uL (4.20-5.40); RED CELL DISTRIBUTION WIDTH 12.3 % (12.0-15.0); WHITE BLOOD COUNT 4.8 x10^3/uL (4.8-10.8)
[2022-02-07 12:59] LABS: ESTIMATED AVERAGE GLUCOSE 111 mg/dL (70-100); HEMOGLOBIN A1c% 5.5 % (4.27-6.07)
[2022-02-07 13:17] LABS: ALBUMIN 4.6 g/dL (3.2-5.5); ALBUMIN/GLOBULIN RATIO 1.6 (1.0-2.2); ALKALINE PHOSPHATASE 48 IU/L (42-121); ALT ALANINE AMINOTRANSFERASE 14 IU/L (10-60); AST ASPARTATE AMINOTRANSFERASE 16 IU/L (10-42); BILIRUBIN,TOTAL 0.4 mg/dL (0.2-1.0); BUN - BLOOD UREA NITROGEN 18 mg/dL (6-20); CALCIUM 9.3 mg/dL (8.5-10.3); CARBON DIOXIDE - CO2 26 mmol/L (21-32); CHLORIDE 101 mmol/L (101-111); CHOLESTEROL 188 mg/dL; CREATININE 0.7 mg/dL (0.4-1.0); GFR - MDRD 87 (>89); GLUCOSE 103 mg/dL (70-100); HDL CHOLESTEROL 62 mg/dL; LDL CHOLESTEROL,CALCULATED 113 mg/dL; LDL/HDL RATIO 1.8 (<4.4); POTASSIUM 4.2 mmol/L (3.5-5.0); SODIUM 134 mmol/L (135-145); TOTAL PROTEIN 7.5 g/dL (6.7-8.2); TRIGLYCERIDES 63 mg/dL; VLDL CHOLESTEROL 13 mg/dL
[2022-02-07 13:24] LABS: THYROID STIMULATING HORMONE 2.27 uIU/mL (0.34-5.60)
== END 2022-02-07 07:06 | disposition home or self-care (01) ==
LOC: LAB.N 07:05
PROVIDERS: ATTEND Physician Assistant
DX: D64.9 Anemia, unspecified (principal); Z13.29 Encounter for screening for other suspected endocrine disorder; R73.01 Impaired fasting glucose; E53.8 Deficiency of other specified B group vitamins; Z13.9 Encounter for screening, unspecified; E78.5 Hyperlipidemia, unspecified
CPT/HCPCS: 36415; 80053; 80061; 82306; 82607; 83036; 83721; 84443; 85025

== ENCOUNTER 2022-06-28 16:22 | Emergency (ER) | payer OTHER ==
--- NOTE | 2022-06-28 17:08 | XRAY Report ---
PROCEDURE: Chest 1 View X-Ray INDICATIONS: chest pain TECHNIQUE: One view of the chest was acquired. COMPARISON: 02/18/2019 FINDINGS: Surgical changes and devices: None. Lungs and pleura: No pleural effusions or pneumothorax. Lungs are clear. Mediastinum: Mediastinal contours appear normal. Heart size is normal. Bones and chest wall: No suspicious bony lesions. Overlying soft tissues appear unremarkable. IMPRESSION: Unremarkable portable chest. Reviewed by: Luis Gómez MD on 06/28/2022 4:07 PM [facility] Approved by: Luis Gómez MD on 06/28/2022 4:07 PM [facility] Station ID: [id number]
[2022-06-28 17:34] LABS: BASOPHILS # (AUTO) 0.1 10^3/uL (0.0-0.1); BASOPHILS % (AUTO) 0.8 %; EOSINOPHILS # (AUTO) 0.1 10^3/uL (0.0-0.7); HCT - HEMATOCRIT 33.1 % (37.0-47.0); HGB - HEMOGLOBIN 11.4 g/dL (12.0-16.0); LYMPHOCYTES # (AUTO) 1.6 10^3/uL (1.5-3.5); LYMPHOCYTES % (AUTO) 25.2 %; MEAN CORPUSCULAR HEMOGLOBIN 31.1 pg (27.0-31.0); MEAN CORPUSCULAR HGB CONC 34.4 g/dL (32.0-36.0); MEAN CORPUSCULAR VOLUME 90.2 fL (81.0-99.0); MONOCYTES # (AUTO) 0.4 10^3/uL (0.0-1.0); MONOCYTES % (AUTO) 6.6 %; NEUTROPHILS # (AUTO) 4.1 10^3/uL (1.5-6.6); NEUTROPHILS % (AUTO) 66.2 %; PLT - PLATELET COUNT 221 10^3/uL (130-450); RED BLOOD COUNT 3.67 10^6/uL (4.20-5.40); RED CELL DISTRIBUTION WIDTH 12.3 % (12.0-15.0); WHITE BLOOD COUNT 6.2 x10^3/uL (4.8-10.8)
[2022-06-28 17:47] LABS: ALBUMIN/GLOBULIN RATIO 1.4 (1.0-2.2); BILIRUBIN,TOTAL 0.5 mg/dL (0.2-1.0); CALCIUM 9.3 mg/dL (8.5-10.3); CREATININE 0.8 mg/dL (0.4-1.0); POTASSIUM 3.5 mmol/L (3.5-5.0); TOTAL PROTEIN 6.8 g/dL (6.7-8.2)
--- NOTE | 2022-06-28 17:56 | ED Physician Documentation ---
History of Present Illness - Stated complaint Stated Complaint: CHEST DISCOMFORT,NAUSEA - Chief complaint Chief Complaint: Cardiac - History obtained from History obtained from: Patient - History of Present Illness Timing: Yesterday - Additonal information Additional information: 56-year-old female with no reported past medical history presents by private vehicle for 2 days of left-sided, substernal chest ache. Was constant yesterday, intermittent today. Patient cannot identify what makes the pain come or go. Pain will occasionally radiate into the left arm. No medications taken at home for symptoms. Denies cigarette smoking. Mother and father did have heart disease, however this was not diagnosed until their late 60s Review of Systems Ten Systems: 10 systems reviewed and negative Constitutional: denies: Fever, Chills Cardiac: reports: Chest pain / pressure. 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 - Present Medications Home Medications: Ambulatory Orders Medication Instructions Recorded Confirmed Citalopram [CeleXA] 2 tab PO DAILY 04/12/14 09/03/20 Progesterone, Micronized 100 mg PO DAILY 09/03/20 09/03/20 [Prometrium] estradioL [Estrace] 1 mg PO DAILY 09/03/20 09/03/20 - Allergies Allergies/Adverse Reactions: Allergies Allergy/AdvReac Type Severity Reaction Status Date / Time erythromycin base Allergy Hives Verified 06/28/22 16:30 [Erythromycin Base] - Social History Does the pt smoke?: No Smoking Status: Never smoker Does the pt drink ETOH?: No Does the pt have substance abuse?: No - Immunizations Immunizations are current?: Yes - POLST Patient has POLST: Yes PD ED PE NORMAL - Vitals Vital signs reviewed: Yes - General General: Alert and oriented X 3, No acute distress, Well developed/nourished - HEENT HEENT: Atraumatic, PERRL, EOMI - Neck Neck: Supple, no meningeal sign, No JVD - Cardiac Cardiac: RRR, No murmur, Strong equal pulses - Respiratory Respiratory: No respiratory distress, Clear bilaterally - Abdomen Abdomen: Soft, Non tender, Non distended - Derm Derm: Normal color, Warm and dry, No rash - Extremities Extremities: No deformity, No edema - Neuro Neuro: Alert and oriented X 3, roll wrapper 2-12 intact, No motor deficit, No sensory deficit, Normal speech - Psych Psych: Normal mood, Normal affect Results - Vitals Vitals: Vital Signs - 24 hr 06/28/22 06/28/22 16:30 18:06 Temperature 36.5 C Heart Rate 57 L 63 Respiratory 16 15 Rate Blood Pressure 146/97 H 137/92 H O2 Saturation 99 100 Oxygen O2 Source Room air - EKG (time done) 1628 Rate: Rate (enter#) (57), Rudy Rhythm: Sinus bradycardia Donald: Normal Intervals: Normal [place] QRS: Normal Ischemia: Normal ST segments - Labs Labs: Laboratory Tests 06/28/22 06/28/22 06/28/22 17:12 17:12 17:12 WBC 6.2 RBC 3.67 L Hgb 11.4 L Hct 33.1 L MCV 90.2 MCH 31.1 H MCHC 34.4 RDW 12.3 Plt Count 221 MPV 9.0 Neut # (Auto) 4.1 Lymph # (Auto) 1.6 [place] # (Auto) 0.4 Eos # (Auto) 0.1 Baso # (Auto) 0.1 Absolute Nucleated RBC 0.00 Nucleated RBC % 0.0 Sodium 134 L Potassium 3.5 Chloride 102 Carbon Dioxide 26 Anion Gap 6.0 BUN 12 Creatinine 0.8 Estimated GFR (MDRD) 75 L Glucose 104 H Calcium 9.3 Total Bilirubin 0.5 AST 22 ALT 13 Alkaline Phosphatase 50 Troponin I High Sens 2.6 Total Protein 6.8 Albumin 4.0 Globulin 2.8 Albumin/Globulin Ratio 1.4 PD MEDICAL DECISION MAKING - ED course Complexity details: reviewed results, re-evaluated patient, considered differential, d/w patient ED course: Atypical sounding left-sided chest pain. Patient's only known risk factor is family history, parents do not have any heart disease until their late 60s. EKG sinus rhythm without concerning findings. Chest x-ray unremarkable. High sensitivity troponin 2.6. Patient and family at bedside informed of results, explained I do not know the cause of her chest pain but does not appear that she is having a heart attack at this time. Patient states that she has seen a director of corporate strategy in the past for palpitations, she was counseled to follow-up with this director of corporate strategy again to see if any additional testing should be done. Departure - Departure Disposition: 01 Home, Self Care Clinical Impression: Chest pain Condition: Stable Instructions: ED Chest Pain Atypical Unkn Cause Comments: Your EKG today was normal and your troponins were negative. Your chest X-ray did not show anything that would explain your chest pain. At this time it does not appear as though you are having a heart attack and you are safe to go home. I highly recommend following up with your director of corporate strategy. Discharge Date/Time: 06/28/22 18:10
[2022-06-28 18:07] VITALS: BP 137/92
== END 2022-06-28 18:10 | disposition home or self-care (01) ==
LOC: ED 16:22
DX: R07.89 Other chest pain (principal); Z82.49 Family history of ischemic heart disease and other diseases of the circulatory system
CPT/HCPCS: 36415; 80053; 84484; 85025; 93005; 99284

== ENCOUNTER 2022-08-27 08:00 | Outpatient (CLI) | payer OTHER ==
[2022-08-27 17:46] LABS: BILIRUBIN,URINE NEGATIVE (NEGATIVE); GLUCOSE, URINE (UA) NEGATIVE (NEGATIVE); KETONES,URINE (UA) NEGATIVE (NEGATIVE); LEUKOCYTE ESTERASE, URINE SMALL (NEGATIVE); NITRITE,URINE NEGATIVE (NEGATIVE); OCCULT BLOOD,URINE NEGATIVE (NEGATIVE); PROTEIN,URINE NEGATIVE (NEGATIVE); UROBILINOGEN,URINE 0.2 (NORMAL) E.U./dL (NORMAL)
[2022-08-27 17:58] LABS: CLARITY,URINE CLEAR (CLEAR)
[2022-08-27 18:07] LABS: BACTERIA,URINE Few /HPF (None Seen); RBC,URINE 0-5 /HPF (0-5); SQUAMOUS EPITHELIAL CELL,UR MOD Squamous (<= Few)
== END 2022-08-27 23:59 | disposition home or self-care (01) ==
LOC: LAB.N 08:00
PROVIDERS: ATTEND Nurse Practitioner Family
DX: R10.9 Unspecified abdominal pain (principal)
CPT/HCPCS: 81001; 87086

== ENCOUNTER 2022-08-27 14:48 | Outpatient (CLI) | payer OTHER ==
[2022-08-27 15:34] VITALS: BP 132/82
--- NOTE | 2022-08-27 15:34 | SLEEP CARE CONSULTATION ---
Information from patient questionnaire entered by Silvia Butler. I have reviewed and concur with the information entered by Silvia Butler. This document represents the service I personally performed and the decisions made by me, Naomy Renteria ARNP. History of Present Illness Service Date and Time: 08/27/2022 1448 Reason for Visit: New patient Chief Complaint: reports: Unrefreshed sleep, Snoring, Observed pauses in breathing, Frequent awakenings at night Date of Onset: 1-2 YEARS Usual bedtime: 10 PM ; 11 PM on weekends Time it takes to fall asleep: 30 MINUTES TO 1 HOUR Snores at night: Yes Observed to quit breathing while asleep: Yes Sleeps alone due to snoring: No Number of times waking at night: SEVERAL Reasons for waking at night: reports: Snoring, Gasping for air, Bathroom, Other (NOISE). denies: Choking Toss, Turn, or Twitch while sleeping: Yes Recalls having dreams: Yes Usually gets out of bed at: 640AM; weekends [id number] Feels refreshed in the morning: No Morning headache: No Sleepy or fatigued during the day: Yes Ever fallen asleep while driving: No Takes day naps: No Dreams during day naps: No Prior sleep studies: No Additional HPI information: I had the pleasure of seeing MAXIMILIANO CARLTON today regarding the possibility of her having a sleep disorder. Her current complaints are unrefreshed sleep, snoring, observed pauses in breathing and frequent night awakenings. She states she snores a lot. Her has encouraged her to come in because of different noises coming from her at night, like gasping and pauses in her snoring. She does not wake up feeling rested and has had times that she woke up gasping for air. She does have a couple siblings who have sleep apnea. 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 Patient is and lives in [place]. Have you smoked in the past 12 months: No Alcohol use: Yes Alcohol amount and frequency: 2-3 glasses wine every night Caffeine use: Yes Caffeine amount and frequency: 2-3 coffees every day Family History Family history of sleep disordered breathing: Yes Family Hx Sleep Apnea: Mother: Snoring, Father: Snoring, Sibling: Snoring, Sleep apnea - Treated, Sleep apnea - Untreated Allergies and Home Medications Known drug allergies: Yes (erythromycin ) Drug allergies reviewed: Yes Home medication list reviewed: Yes Allergy and home medication list: Allergies erythromycin base [Erythromycin Base] Allergy (Verified 08/27/22 15:22) Hives Medications: Citalopram 30 mg Estrodiol Progesterone Review of Systems Cardiovascular: denies: high blood pressure Respiratory: denies: shortness of breath Gastrointestinal: denies: heartburn, difficulty swallowing Neurological: denies: headaches, head trauma Psychiatric: reports: anxiety, depression Ear/Nose/Throat: reports: nasal congestion, wisdom teeth removed. denies: tonsillectomy Musculoskeletal: reports: joint pain, other (numbness in right thigh) Physical Exam Vital signs obtained and entered by: BRITTNEY Cramer MA Blood Pressure: 132/82 Heart Rate: 65 O2 Saturation: 97 Height: 5 ft 8.5 in Weight: 186 lb Body Mass Index: 27.8 BMI Classification: Overweight Neck circumference: 14 (inches) Mouth and throat: normal Soft palate: long Hard palate: normal Uvula: normal Uvula visualization: 100% Mallampati Class I Tongue: normal in size Tonsils: small Neck: normal w/o lymphadenopathy or thyromegaly Heart: regular rate and rhythm Lungs: clear bilaterally Impression and Plan 1. Suspected Obstructive Sleep Apnea-Hypopnea Syndrome, as suggested by a history of loud and irregular snoring, observed cessation of breath while asleep, gasping or choking in sleep, frequent awakening during the night, unrefreshed sleep, cognitive impairment, and excessive daytime sleepiness. Narrow oropharynx and obesity are common predisposing factors for obstructive sleep apnea-hypopnea syndrome. I recommend proceeding to polysomnography to confirm the diagnosis and to assess severity. If the patient has significant sleep disordered breathing, a manual CPAP titration study will also be performed to find the optimal treatment pressure. I informed the patient of what the sleep studies involve and after some discussion, obtained agreement to proceed. The pathophysiology of obstructive sleep apnea-hypopnea syndrome was discussed with the patient and health risks of cardiovascular and cerebrovascular disease if not treated. Risks of drowsy driving discussed in detail and patient advised to avoid long distance driving and to boat puller at the first sign of drowsiness. Patient agreed to plan. * Schedule polysomnography * Avoid long distance driving or driving when feeling sleepy. * Avoid alcohol, sedative and muscle relaxant around bedtime. * Attempt to lose weight. * Review instructions provided by trained office staff on how to prepare for the sleep study. * Return for follow-up after sleep study completed. Counseling Topics: Weight loss health impact Visit Type: In Office Time Spent with Patient (minutes): 30 Provider Statement: I spent 100% of the Face to Face Visit with the patient with greater than 50% spent counseling the patient and coordination of care.
== END 2022-08-27 14:49 | disposition home or self-care (01) ==
LOC: SC 14:48
PROVIDERS: ATTEND Nurse Practitioner Family
DX: G47.10 Hypersomnia, unspecified (principal); R53.83 Other fatigue; G47.8 Other sleep disorders; R06.83 Snoring; R06.81 Apnea, not elsewhere classified; F32.A Depression, unspecified; E66.3 Overweight; Z68.27 Body mass index [BMI] 27.0-27.9, adult; R10.9 Unspecified abdominal pain
CPT/HCPCS: 81001; 87086; 99203; 99212

== ENCOUNTER 2022-10-01 15:02 | Outpatient (CLI) | payer OTHER | END 2022-10-01 15:03 | disposition home or self-care (01) | LOC: SC 15:02 | PROVIDERS: ATTEND Nurse Practitioner Family | DX: G47.33 Obstructive sleep apnea (adult) (pediatric) (principal); R09.02 Hypoxemia | CPT/HCPCS: 95806 ==

== ENCOUNTER 2022-11-07 12:50 | Outpatient (CLI) | payer OTHER ==
--- NOTE | 2022-11-07 13:21 | SLEEP CARE CONSULTATION ---
Information from patient questionnaire entered by Do Gamboa. I have reviewed and concur with the information entered by Do Gamboa. This document represents the service I personally performed and the decisions made by , Naomy Renteria ARNP. History of Present Illness Service Date and Time: 11/07/2022 1250 Initial Stuart Sleepiness Scale score: 8 (08/05/22) Current Stuart Sleepiness Scale score: 10 (11/07/22) Additional HPI information: MAXIMILIANO CARLTON returns for follow up and results of the recently performed home sleep study. I explained the pathophysiology behind obstructive sleep apnea. We then spent quite a bit of time discussing different treatment options. For mild obstructive sleep apnea, surgery and oral appliance are alternatives to nasal CPAP therapy but in moderate or severe cases, nasal CPAP is the most effective and reliable treatment. Because apnea is primarily in supine position, then positional management therapy could be effective. Methods discussed such as positioning with pillows to prevent supine sleep. I reviewed the impact of weight changes on sleep apnea and strongly recommended losing weight. After some discussion, the patient opted to go with the nasal CPAP therapy. Nasal autoCPAP set at 4-15 cmH20 will be ordered with rationale explained. A manual titration study will be ordered if unable to find optimal pressure with office adjustments. I explained how CPAP machine works and what to expect when using the machine. Using CPAP every night in order to get used to it was emphasized. Patient advised to put CPAP mask on before getting into bed so as not to fall asleep without CPAP. To assist acclimation to CPAP use, it could also be used for a short time during day while reading or watching TV. The patient was instructed to call the CPAP supplier to discuss any mechanical problem that may occur. If the mask given is uncomfortable or is difficult to keep on through the night even with adjustment, contact the CPAP supplier as many will replace with another mask style if notified before 30 days. If snoring or perceives is not getting enough air or too much air from the machine, notify this office. Patient counseled not drink alcohol less than 4 hours before bedtime as it can increase snoring and apnea. Patient was cautioned about risks of drowsy driving until sleepiness symptoms resolve. Patient denies drowsy driving. Sleep Study - Results Type of Sleep Study: Home sleep study (COMPLETED 10/01/22) Prior sleep studies: No Polysomnography/Home Sleep Study results: Physician Impression: The quality of the study is good. The length of the study is adequate (> 240 minutes). Please also see the tabulated and graphic data. 1. Obstructive Sleep Apnea-Hypopnea (ICD-10 G47.33), moderate, with an AHI of 17.0/hr and reji SaO2 of 86%. During the study, the patient had 92 apneas (92 obstructive, 0 central, 0 mixed) and 43 hypopneas. The longest episode lasted 82.0 seconds. The respiratory events occurred more frequently during supine sleep (supine AHI was 31.4 and non-supine, 10.59). 2. Hypoxemia (ICD-10 R09.02), mild, with the lowest oxygen saturation of 86 % and 1.5 minutes with SaO2 under 90%. Baseline oxygen saturation was normal (Average oxygen saturation was 95%). Allergies and Home Medications Drug allergies reviewed: Yes (erythromycin base) Home medication list reviewed: Yes (no changes) Review of Systems Review of systems same as previous: Yes (no changes) Physical Exam Vital signs obtained and entered by: DO Thrasher MA Blood Pressure: 122/70 (LEFT ARM) Cuff size: regular Heart Rate: 58 O2 Saturation: 98 Height: 5 ft 8.5 in Weight: 183 lb 12.8 oz Body Mass Index: 27.5 BMI Classification: Overweight Impression and Plan 1. Obstructive Sleep Apnea-Hypopnea Syndrome, moderate, with lowest oxygen saturation of 86%. Obviously this is the cause of the patients symptoms of unrefreshed sleep, and excessive daytime sleepiness. Positive pressure therapy could benefit anxiety and depression. As mentioned above, the patient will be started on nasal autoCPAP therapy with pressure set at 4-15 cmH2O. Compliance guidelines also reviewed. A copy of compliance guidelines will be given for reference at check out. Because the apnea is more severe supine, I instructed to avoid sleeping supine using pillow positioning until able to start CPAP use. * Nasal auto CPAP therapy, pressure at 4-15 cm H2O. * Attempt to lose weight. * Avoid alcohol consumption near bedtime. * Avoid supine sleep until using CPAP. * The patient is again cautioned about driving until sleepiness completely resolves. * Return one month after CPAP obtained. I will assess response to therapy and compliance at that time. Counseling Topics: Sleeping position, Weight loss health impact Visit Type: In Office Time Spent with Patient (minutes): 22 Provider Statement: I spent 100% of the Face to Face Visit with the patient with greater than 50% spent counseling the patient and coordination of care.
[2022-11-07 13:25] VITALS: BP 122/70
== END 2022-11-07 12:51 | disposition home or self-care (01) ==
LOC: SC 12:50
PROVIDERS: ATTEND Nurse Practitioner Family
DX: G47.33 Obstructive sleep apnea (adult) (pediatric) (principal); E66.3 Overweight; Z68.27 Body mass index [BMI] 27.0-27.9, adult
CPT/HCPCS: 99212; 99213

== ENCOUNTER 2023-03-11 08:00 | Outpatient (CLI) | payer OTHER ==
[2023-03-11 20:51] LABS: BILIRUBIN,URINE NEGATIVE (NEGATIVE); GLUCOSE, URINE (UA) NEGATIVE (NEGATIVE); KETONES,URINE (UA) NEGATIVE (NEGATIVE); LEUKOCYTE ESTERASE, URINE MODERATE (NEGATIVE); NITRITE,URINE NEGATIVE (NEGATIVE); OCCULT BLOOD,URINE NEGATIVE (NEGATIVE); PH,URINE 6.5 PH (5.0-7.5); PROTEIN,URINE NEGATIVE (NEGATIVE); UROBILINOGEN,URINE 0.2 (NORMAL) E.U./dL (NORMAL)
[2023-03-11 21:02] LABS: BACTERIA,URINE Few /HPF (None Seen); CLARITY,URINE HAZY (CLEAR); RBC,URINE 0-5 /HPF (0-5); SQUAMOUS EPITHELIAL CELL,UR FEW Squamous (<= Few); WBC,URINE >25 /HPF (0-5)
== END 2023-03-11 23:59 | disposition home or self-care (01) ==
LOC: LAB.N 08:00
PROVIDERS: ATTEND Nurse Practitioner Family
DX: R10.9 Unspecified abdominal pain (principal)
CPT/HCPCS: 81001; 87077; 87086; 87181

== ENCOUNTER 2023-03-27 16:05 | Outpatient (CLI) | payer OTHER ==
--- NOTE | 2023-03-27 16:41 | Sleep Patient Instructions ---
Sleep Center Visit Summary - Patient Visit Information Reason for Visit: First compliance visit for PAP therapy - Patient Instructions Additional Instructions: You were here for follow up of CPAP therapy. You will be continued on CPAP therapy with pressure at 4-8 cmH2O. Please let us know if the pressure change is uncomfortable and we can make further adjustments of the pressure. You should follow up with sleep care in 1-2 months. You may contact us sooner for any questions or concerns. - Clinic Information Contact: [facility] [address] [place] [address] [email or web address] T: [phone]
--- NOTE | 2023-03-27 16:45 | SLEEP CARE CONSULTATION ---
Information from patient questionnaire entered by Do Gamboa. I have reviewed and concur with the information entered by Do Gamboa. This document represents the service I personally performed and the decisions made by , Naomy Renteria ARNP. History of Present Illness Service Date and Time: 03/27/2023 1605 Previous diagnosis: Moderate, Obstructive Sleep Apnea-Hypopnea Syndrome AHI: 17 (in 09/2022) Reason for follow up: first compliance Equipment type: CPAP (RESMED Airsense 10, 11/2022) Equipment obtained from: Other ([facility], getting supplies) Mask style: Nasal Backup mask available: No Last cushion change: every 2 weeks Prior sleep studies: No Type of Sleep Study: Home sleep study (COMPLETED 10/01/22) HPI additional information: MAXIMILIANO CARLTON was diagnosed to have moderate, AHI 17, obstructive sleep apnea-hypopnea syndrome and returned today for CPAP therapy first compliance follow-up. Sleep Study - Results Type of Sleep Study: Home sleep study (COMPLETED 10/01/22) Prior sleep studies: No CPAP Compliance Data - Data Reviewed with Patient Average duration of nightly device use: 6 HRS 22 MIN Compliance rate %: 86 (12/25/22-03/24/23; 83/90 days used) Current pressure setting (cmH2O): 4-9 (median 7.0, avg 9.2, max 9.7) Average residual AHI: 5.3 Central apnea: 3.2 Obstructive apnea: 1.4 Hypopnea: 0.5 Average large leak: 1.1 L/min Subjective Patient concerns: reports: mask leak noise (from top tubing vent), dry mouth, nose, throat (occasional). denies: aerophagia, mask discomfort, air blowing in eyes, condensation in mask/hose, nasal congestion, epistaxis Observed to snore while using device: No Current pressure setting perceived as: comfortable On therapy, patient: reports: sleeping better, awakening more refreshed, being more awake and alert during the day, more rested overall. denies: drowsiness while driving Initial [place] Sleepiness Scale score: 8 (08/05/22) Current [place] Sleepiness Scale score: 7 Allergies and Home Medications Known drug allergies: Yes (erythromycin base) Drug allergies reviewed: Yes Home medication list reviewed: Yes (no changes) Allergy and home medication list: Allergies erythromycin base [Erythromycin Base] Allergy (Verified 03/26/23 09:36) Hives Review of Systems Review of systems same as previous: Yes (no changes) Physical Exam Vital signs obtained and entered by: Naomy Morgan NP Blood Pressure: 109/66 Cuff size: wrist (right) Heart Rate: 65 O2 Saturation: 98 Height: 5 ft 8.5 in Weight: 179 lb 9.6 oz Body Mass Index: 26.9 BMI Classification: Overweight Impression and Plan 1. Obstructive Sleep Apnea-Hypopnea Syndrome, moderate, with good treatment compliance and fair apnea control with minimal elevation of residual AHI. On CPAP therapy, the patient has better sleep quality and is more rested overall. Patient felt that the adjustment made few weeks ago made a world of difference in how comfortable the pressure was at night. She does have a minimal elevation of the residual AHI with elevated central index mainly. The patients pressure will be changed to autoCPAP 4-8 cmH20 for minimal elevation of residual AHI. Patient advised to contact me if pressure change is uncomfortable so that it can be adjusted. Goals for apnea control discussed. Patient's apnea severity and rationale for treatment to reduce apnea, improve sleep quality and reduce cardiovascular and cerebrovascular events was reviewed. I also reviewed the benefit of consistent device use of CPAP for depression/anxiety. 2. Overweight, unspecified. Currently patients BMI is 26.9. Obesity increases the risk of apnea, CPAP pressure requirements and overall health risks especially cardiovascular and diabetes. Thus patient is to maintain a healthy weight. * Change auto CPAP pressure to 4-8 cmH2O * Notify me if snoring with mask or feeling that the pressure is too much or too little * Maintain healthy weight * Call this office if any problems using CPAP * Return for follow up in 1-2 months, or sooner if concerns arise * Counseling Topics: Spare mask, Weight loss health impact Visit Type: In Office Time Spent with Patient (minutes): 20 Provider Statement: I spent 100% of the Face to Face Visit with the patient with greater than 50% spent counseling the patient and coordination of care.
[2023-03-27 16:54] VITALS: BP 109/66
== END 2023-03-27 16:06 | disposition home or self-care (01) ==
LOC: SC 16:05
PROVIDERS: ATTEND Nurse Practitioner Family
DX: G47.33 Obstructive sleep apnea (adult) (pediatric) (principal); E66.3 Overweight; Z68.26 Body mass index [BMI] 26.0-26.9, adult
CPT/HCPCS: 99212; 99213

== ENCOUNTER 2023-05-06 08:56 | Outpatient (CLI) | payer OTHER ==
--- NOTE | 2023-05-06 08:50 | SLEEP CARE CONSULTATION ---
Information from patient questionnaire entered by Alfreda Gamboa. I have reviewed and concur with the information entered by Alfreda Gamboa. This document represents the service I personally performed and the decisions made by , Naomy Renteria ARNP. History of Present Illness Service Date and Time: 05/06/2023 0840 Previous diagnosis: Moderate, Obstructive Sleep Apnea-Hypopnea Syndrome AHI: 17 (in 09/2022) Reason for follow up: one month (F/U PRESSURE CHANGE) Equipment type: CPAP (RESMED Airsense 10, 11/2022) Equipment obtained from: Other ([employer], [employer]) Mask style: Nasal Mask brand: Respironics (Dreamwear) Backup mask available: Yes (is keeping old mask when switching to replacement) Last cushion change: 2 weeks Prior sleep studies: No Type of Sleep Study: Home sleep study (COMPLETED 10/01/22) HPI additional information: MAXIMILIANO CARLTON was diagnosed to have moderate, AHI 17, obstructive sleep apnea-hypopnea syndrome and returns via video telehealth visit today for CPAP therapy one month follow-up. Sleep Study - Results Type of Sleep Study: Home sleep study (COMPLETED 10/01/22) Prior sleep studies: No CPAP Compliance Data - Data Reviewed with Patient Average duration of nightly device use: 6 HRS 38 MIN Compliance rate %: 87 (04/04/23-05/03/23; /30 days used) Current pressure setting (cmH2O): 4-8 Average residual AHI: 4.8 Central apnea: 3 Obstructive apnea: 1.2 Hypopnea: 0.5 Average large leak: 0 L/min Subjective Missed days of use due to: reports: travel Patient concerns: denies: aerophagia, mask discomfort, air blowing in eyes, mask leak noise, condensation in mask/hose, nasal congestion, dry mouth, nose, throat, epistaxis Observed to snore while using device: No Current pressure setting perceived as: comfortable On therapy, patient: reports: sleeping better, awakening more refreshed, being more awake and alert during the day, more rested overall. denies: drowsiness while driving Initial [place] Sleepiness Scale score: 8 (08/05/22) Current [place] Sleepiness Scale score: 7 (05/06/23) Allergies and Home Medications Known drug allergies: Yes (erythromycin base) Drug allergies reviewed: Yes Home medication list reviewed: Yes (no changes) Allergy and home medication list: Allergies erythromycin base [Erythromycin Base] Allergy (Verified 05/05/23 09:21) Hives Review of Systems Review of systems same as previous: Yes (no changes) Physical Exam Vital signs obtained and entered by: ALFREDA Thrasher MA Height: 5 ft 9 in (PER PT) Weight: 180 lb (PER PT) Body Mass Index: 26.6 BMI Classification: Overweight Impression and Plan 1. Obstructive Sleep Apnea-Hypopnea Syndrome, moderate, with good treatment compliance and good apnea control. On CPAP therapy, the patient has better sleep quality and is more rested overall. Patient states the pressure change made it much more comfortable with less air puffing out her cheeks. She missed a couple of nights of using it when she traveled with friends and did notice a difference on how she felt in the morning. Patient has significant improvement of their sleep apnea and is satisfied with current CPAP therapy. Patient denies problems with oral dryness, nasal congestion, epistaxis, skin irritation or aerophagia. Patient's apnea severity and rationale for treatment to reduce apnea, improve sleep quality and reduce cardiovascular and cerebrovascular events was reviewed. I also reviewed the benefit of consistent device use of CPAP for depression/anxiety. 2. Overweight, unspecified. Currently patients BMI is 26.6. Obesity increases the risk of apnea, CPAP pressure requirements and overall health risks especially cardiovascular and diabetes. Thus patient is advised to maintain a healthy weight. * Continue auto CPAP pressure at 4-8 cmH2O * Notify me if snoring with mask or feeling that the pressure is too much or too little * Attempt to lose weight * Call this office if any problems using CPAP * Return for follow up in 3 months, or sooner if concerns arise Counseling Topics: Spare mask, Weight loss health impact Visit Type: Telehealth Video Video Type: Doximity Patient Location: Home Location of Provider: Office Patient agrees and consents to this telehealth visit type: Yes Patient agrees to have their insurance billed: Yes Time Spent with Patient (minutes): 12 Provider Statement: I spent 100% of the Telehealth Video Call with the patient with greater than 50% spent counseling the patient and coordination of care.
== END 2023-05-06 08:57 | disposition home or self-care (01) ==
LOC: SC 08:56
PROVIDERS: ATTEND Nurse Practitioner Family
DX: G47.33 Obstructive sleep apnea (adult) (pediatric) (principal); E66.3 Overweight; Z68.26 Body mass index [BMI] 26.0-26.9, adult

== ENCOUNTER 2023-06-28 15:49 | Outpatient (CLI) | payer OTHER ==
--- NOTE | 2023-06-28 18:45 | Ultrasound Report ---
PROCEDURE: Duplex Ext Veins Right INDICATIONS: EDEMA TECHNIQUE: Real-time imaging, as well as color and pulse Doppler interrogation, were performed of the lower extr emity deep veins from the inguinal ligament to the popliteal fossa. Attempted visualization of the ca lf veins was performed. COMPARISON: None. FINDINGS: The deep veins are normally compressible, and free of intraluminal thrombus. Color and pu lse Doppler demonstrate normal phasic intraluminal flow. There is normal augmentation response to di stal compression maneuver. Saphenofemoral junction is patent. IMPRESSION: No right lower extremity DVT. Reviewed by: Artem Dunham MD on 06/28/2023 6:44 PM PDT Approved by: Artem Dunham MD on 06/28/2023 6:44 PM PDT Station ID: [id number]
== END 2023-06-28 15:50 | disposition home or self-care (01) ==
LOC: DI 15:49
PROVIDERS: ATTEND Nurse Practitioner
DX: R60.0 Localized edema (principal)

== ENCOUNTER 2023-08-05 15:24 | Outpatient (CLI) | payer OTHER ==
--- NOTE | 2023-08-05 16:06 | Sleep Patient Instructions ---
Sleep Center Visit Summary - Patient Visit Information Reason for Visit: 3 month followup - Patient Instructions Additional Instructions: You were here for follow up of CPAP therapy. You will be continued on CPAP therapy with pressure at 4-8 cmH2O. You should follow up with sleep care in 12 months. You may contact us sooner for any questions or concerns. - Clinic Information Contact: [facility] [address] [place] [id number] [email or web address] T: [phone]
--- NOTE | 2023-08-05 16:09 | SLEEP CARE CONSULTATION ---
Information from patient questionnaire entered by Alfreda Gamboa. I have reviewed and concur with the information entered by Alfreda Gamboa. This document represents the service I personally performed and the decisions made by , Naomy Renteria ARNP. History of Present Illness Service Date and Time: 08/05/2023 1524 Previous diagnosis: Moderate, Obstructive Sleep Apnea-Hypopnea Syndrome AHI: 17 (in 09/2022) Reason for follow up: three month (F/U) Equipment type: CPAP (RESMED Airsense 10, s/u 11/2022) Equipment obtained from: Other ([facility], [employer]) Mask style: Nasal Backup mask available: Yes Last cushion change: 4 days ago Prior sleep studies: No Type of Sleep Study: Home sleep study (COMPLETED 10/01/22) HPI additional information: MAXIMILIANO CARLTON was diagnosed to have moderate, AHI 17, obstructive sleep 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 Sleep Study - Results Type of Sleep Study: Home sleep study (COMPLETED 10/01/22) Prior sleep studies: No CPAP Compliance Data - Data Reviewed with Patient Average duration of nightly device use: 6 HRS 41 MINS Compliance rate %: 87 (05/05/23-08/02/2023; 80/90 days used) Current pressure setting (cmH2O): 4-8 Average residual AHI: 4.2 Central apnea: 2.4 Obstructive apnea: 1.4 Average large leak: 0.1 L/min Subjective Missed days of use due to: reports: travel, other (fell asleep without ) Patient concerns: reports: mask leak noise, condensation in mask/hose, dry mouth, nose, throat (occasional). denies: aerophagia, mask discomfort, air blowing in eyes, nasal congestion, epistaxis Observed to snore while using device: No Current pressure setting perceived as: comfortable On therapy, patient: reports: sleeping better, awakening more refreshed, being more awake and alert during the day, more rested overall. denies: drowsiness while driving Initial [place] Sleepiness Scale score: 8 (08/05/22) Current [place] Sleepiness Scale score: 10 (08/05/23) Allergies and Home Medications Known drug allergies: Yes (as listed) Drug allergies reviewed: Yes Home medication list reviewed: Yes (no changes) Allergy and home medication list: Allergies erythromycin base [Erythromycin Base] Allergy (Verified 08/04/23 15:53) Hives Review of Systems Review of systems same as previous: Yes (NO CHANGE) Physical Exam Vital signs obtained and entered by: ALFREDA Tharsher MA Blood Pressure: 126/72 (LEFT ARM) Cuff size: regular Heart Rate: 98 O2 Saturation: 68 Height: 5 ft 8.5 in Weight: 188 lb (with shoes) Body Mass Index: 28.1 BMI Classification: Overweight Impression and Plan 1. Obstructive Sleep Apnea-Hypopnea Syndrome, moderate, with good treatment compliance and good apnea control. On CPAP therapy, the patient has better sleep quality and is more rested overall. Patient has significant improvement of their sleep apnea and is satisfied with current CPAP therapy. She did get a little condensation but adjusted her humidity and that resolved. She also occasionally gets dry mouth but overall there is no problem with that. She gets some mask leaking and is going to change from a medium to a small cushion on her nasal mask to reduce the leaking because she had less leaks when she was using a small cushion. I encouraged her to reach out to her DME to order small cushions. She is quite comfortable with use of her CPAP and we will follow-up with her next year. Patient's apnea severity and rationale for treatment to reduce apnea, improve sleep quality and reduce cardiovascular and cerebrovascular events was reviewed. I also reviewed the benefit of consistent device use of CPAP for depression/anxiety. 2. Overweight, unspecified. Currently patients BMI is 28.1. Obesity increases the risk of apnea, CPAP pressure requirements and overall health risks especially cardiovascular and diabetes. Thus patient is advised to try to lose weight. * Continue auto CPAP pressure at 4-8 cmH2O * Notify me if snoring with mask or feeling that the pressure is too much or too little * Continue to try to lose weight * Call this office if any problems using CPAP * Return for follow up in 12 months, or sooner if concerns arise Counseling Topics: Spare mask, Weight loss health impact Follow up with Sleep Care in: 1 year Visit Type: In Office Time Spent with Patient (minutes): 16 Provider Statement: I spent 100% of the Face to Face Visit with the patient with greater than 50% spent counseling the patient and coordination of care.
[2023-08-05 16:20] VITALS: BP 126/72; O2SAT 68
== END 2023-08-05 15:25 | disposition home or self-care (01) ==
LOC: SC 15:24
PROVIDERS: ATTEND Nurse Practitioner Family
DX: G47.33 Obstructive sleep apnea (adult) (pediatric) (principal); E66.3 Overweight; Z68.28 Body mass index [BMI] 28.0-28.9, adult
CPT/HCPCS: 99212

== ENCOUNTER 2023-08-10 15:27 | Outpatient (CLI) | payer OTHER ==
--- NOTE | 2023-08-11 10:36 | Mammography Report ---
BILATERAL DIGITAL SCREENING MAMMOGRAM 3D/2D: 08/10/2023 CLINICAL: Routine screening. Comparison is made to exams dated: 09/09/2021 mammogram, 04/16/2017 mammogram, and 04/16/2016 mammogra m - [facility]. There are scattered areas of fibroglandular density in both breasts (category b / 25%-50% glandular t issue). No significant masses, calcifications, or other findings are seen in either breast. There has been no significant interval change. IMPRESSION: NEGATIVE There is no mammographic evidence of malignancy. A 1 year screening mammogram is recommended. Based on the Tyrer Cuzick model (a risk assessment model) the patients lifetime risk is 8.3% and her 10 year risk is 2.5%. According to the ACR, ACS, and NCCN guidelines, an annual breast MRI exam marleny g with mammogram is recommended if the patients lifetime risk is 20% or greater. This exam was interpreted at Station ID: [id number]. NOTE: For mammograms, a report in lay terms will be sent to the patient. Approximately 15% of breast malignancies will not be visualized mammographically. In the management of a palpable breast mass, a negative mammogram must not discourage biopsy of a clinically suspicious lesion. Electronically Signed By: Kash bonilla/dominique:08/11/2023 08:15:17 letter sent: No_Letter ACR BI-RADS Category 1: Negative 3341F PARENCHYMAL PATTERN: (A) - The breast(s) demonstrate(s) scattered fibroglandular densities. BI-RADS CATEGORY: (1) - 1 Mammogram [id number] 1 year screening LATERALITY: (B)
== END 2023-08-10 15:28 | disposition home or self-care (01) ==
LOC: DI.N 15:27
DX: Z12.31 Encounter for screening mammogram for malignant neoplasm of breast (principal); R92.323 Mammographic fibroglandular density, bilateral breasts

== ENCOUNTER 2023-08-21 08:00 | Outpatient (CLI) | payer OTHER ==
[2023-08-21 18:01] LABS: BILIRUBIN,URINE NEGATIVE (NEGATIVE); GLUCOSE, URINE (UA) NEGATIVE (NEGATIVE); KETONES,URINE (UA) NEGATIVE (NEGATIVE); LEUKOCYTE ESTERASE, URINE SMALL (NEGATIVE); NITRITE,URINE NEGATIVE (NEGATIVE); OCCULT BLOOD,URINE NEGATIVE (NEGATIVE); PROTEIN,URINE NEGATIVE (NEGATIVE); UROBILINOGEN,URINE 0.2 (NORMAL) E.U./dL (NORMAL)
[2023-08-21 18:24] LABS: CLARITY,URINE HAZY (CLEAR)
[2023-08-21 18:45] LABS: RBC,URINE 0-5 /HPF (0-5)
[2023-08-21 18:46] LABS: BACTERIA,URINE Few /HPF (None Seen); SQUAMOUS EPITHELIAL CELL,UR FEW Squamous (<= Few)
== END 2023-08-21 23:59 | disposition home or self-care (01) ==
LOC: LAB.N 08:00
PROVIDERS: ATTEND Physician Assistant
DX: R10.9 Unspecified abdominal pain (principal)
CPT/HCPCS: 81001; 81003; 87086

== ENCOUNTER 2023-08-26 07:36 | Outpatient (CLI) | payer OTHER ==
[2023-08-26 11:57] LABS: ESTIMATED AVERAGE GLUCOSE 114 mg/dL (70-100); HEMOGLOBIN A1c% 5.6 % (4.27-6.07)
[2023-08-26 12:00] LABS: BASOPHILS % (AUTO) 0.8 %; EOSINOPHILS # (AUTO) 0.2 10^3/uL (0.0-0.7); EOSINOPHILS % (AUTO) 3.3 %; HCT - HEMATOCRIT 38.3 % (37.0-47.0); HGB - HEMOGLOBIN 12.4 g/dL (12.0-16.0); LYMPHOCYTES # (AUTO) 1.9 10^3/uL (1.5-3.5); LYMPHOCYTES % (AUTO) 39.6 %; MEAN CORPUSCULAR HEMOGLOBIN 30.1 pg (27.0-31.0); MEAN CORPUSCULAR HGB CONC 32.4 g/dL (32.0-36.0); MEAN PLATELET VOLUME 9.2 fL (7.9-10.8); MONOCYTES # (AUTO) 0.4 10^3/uL (0.0-1.0); NEUTROPHILS # (AUTO) 2.3 10^3/uL (1.5-6.6); NEUTROPHILS % (AUTO) 47.1 %; PLT - PLATELET COUNT 248 10^3/uL (130-450); RED BLOOD COUNT 4.12 10^6/uL (4.20-5.40); RED CELL DISTRIBUTION WIDTH 12.8 % (12.0-15.0); WHITE BLOOD COUNT 4.9 x10^3/uL (4.8-10.8)
[2023-08-26 12:20] LABS: ALBUMIN 4.5 g/dL (3.2-5.5); ALBUMIN/GLOBULIN RATIO 1.5 (1.0-2.2); ALKALINE PHOSPHATASE 43 IU/L (42-121); ALT ALANINE AMINOTRANSFERASE 12 IU/L (10-60); AST ASPARTATE AMINOTRANSFERASE 12 IU/L (10-42); BILIRUBIN,TOTAL 0.4 mg/dL (0.2-1.0); BUN - BLOOD UREA NITROGEN 21 mg/dL (6-20); CALCIUM 9.5 mg/dL (8.5-10.3); CARBON DIOXIDE - CO2 28 mmol/L (21-32); CHLORIDE 101 mmol/L (101-111); CHOL/HDL RATIO 3.2 (<4.4); CHOLESTEROL 219 mg/dL; CREATININE 0.7 mg/dL (0.6-1.3); GFR - MDRD 87 (>89); GLUCOSE 114 mg/dL (74-104); HDL CHOLESTEROL 68 mg/dL; LDL CHOLESTEROL,CALCULATED 127 mg/dL; LDL/HDL RATIO 1.9 (<4.4); POTASSIUM 4.3 mmol/L (3.5-4.5); SODIUM 134 mmol/L (135-145); TOTAL PROTEIN 7.5 g/dL (6.4-8.9); TRIGLYCERIDES 118 mg/dL (48-352); VLDL CHOLESTEROL 24 mg/dL
== END 2023-08-26 07:37 | disposition home or self-care (01) ==
LOC: LAB.N 07:36
PROVIDERS: ATTEND Physician Assistant
DX: E78.5 Hyperlipidemia, unspecified (principal); R73.01 Impaired fasting glucose; E53.8 Deficiency of other specified B group vitamins; Z13.9 Encounter for screening, unspecified; D64.9 Anemia, unspecified
CPT/HCPCS: 36415; 80053; 80061; 82607; 83036; 83721; 84443; 85025